=== PATIENT | female | born 1975 | race Caucasian/White ===

== ENCOUNTER 2020-06-16 12:15 | Emergency (ER) | payer OTHER, MEDICAID ==
[~2020-06-16] VITALS: Ht 160 cm; Wt 124.7 kg
[~2020-06-16 12:15] MED LIST: ACYCLOVIR 400400 MG; BACTRIM DS TAB1 EACH PO; BACTROBAN CREAM30 G1 TOP; BACTROBAN NASAL1 GM NASAL; MILK THISTLE500 MG PO; MOBIC7.5 M1 PO; PRENATAL; TRAMADOL 50 MG50 MG PO; ZPAK PO
[2020-06-16] MEDS ORDERED: KAPVAY0.1 MG PO ×2 (12:27→12:52)
[2020-06-16] MEDS ORDERED: VISTARIL 25 MG25 M1 PO ×2 (12:27→12:52)
[2020-06-16] MEDS ORDERED: NORVASC5 MG PO ×2 (12:27→12:52)
[2020-06-16] MEDS ORDERED: CLONIDINE HCL0.3 M3 PO ×2 (12:27→12:52)
[2020-06-16 12:59] VITALS: BP 161/70
== END 2020-06-16 13:00 | disposition home or self-care (01) ==
LOC: M.ERS 12:15
DX: I10 Essential (primary) hypertension (principal); Z76.0 Encounter for issue of repeat prescription; Z98.890 Other specified postprocedural states; Z88.5 Allergy status to narcotic agent